=== PATIENT | male | born 1965 | race Caucasian/White ===

== ENCOUNTER 2019-01-14 09:44 | Emergency (ER) | payer MEDICARE, SELFPAY ==
[2019-01-14 09:44] VITALS: BP 158/93; PULSE 20; RESP 78; TEMP 36.6; O2SAT 97; BMI 32.1
--- NOTE | 2019-01-14 10:01 | ED.VIS.GEN ---
History of Present Illness Chief Complaint: Abd Pain Informant: Patient Onset: Days - Patient reports onset of pain Friday with nausea, vomiting and diarrhea Context: Sudden Onset Timing: Intermittent Quality: Crampy diffuse Location: Abdominal pain Current Severity: Mild Maximum Severity: Moderate Worsened by: Vomiting and diarrhea Relieved by: Nothing Associated Symptoms: Nausea, vomiting and diarrhea, decreased urine output Narrative: Patient is a middle-aged male with history of hypertension on 5 mg lisinopril who presents with nausea, vomiting diarrhea that started Friday. He reports vomiting 10-15 times on Friday, 5 times yesterday and 7 times since midnight. He also reports diarrhea that was profuse with onset. He still reports 7 bowel movements a day. He states his diarrhea is watery and light brown in color. He denies hematemesis, melena hematochezia. He denies mucus in the stool. He states he has not been on an antibiotic in the past month. He denies ill contacts. Prior similar symptoms: No Recent Illness/Hospitalization: No - Past Medical History (1) History of hypertension Status: Acute Past Medical History - Allergies and Home Meds Allergies/Adverse Reactions: Allergies risperidone [From Risperdal] Allergy (Verified 11/11/16 21:42) Other HALLUCINATIONS Primary Care Physician: Zofia Juarez MD [NON-STAFF] - Prior records reviewed: Yes Surgical History: - - Left inguinal hernia repair and umbilical hernia repair Lives: Alone Smoking Status: Current every day smoker Alcohol: None Review of Systems General: Reports: Malaise. Denies: Chills, Fever, Subjective, Sweats Eyes: Denies: Visual changes - bilaterally, Blurred Vision - bilaterally, Diplopia ENT: Denies: Rhinorrhea, Sore throat Cardiovascular: Denies: Chest pain, Palpitations Respiratory: Denies: Dyspnea, Cough, Dyspnea on exertion, Orthopnea, Paroxysmal nocturnal dyspnea Gastrointestinal: Reports: Abdominal pain, Nausea, Vomiting, Diarrhea. Denies: Constipation, Melena, Hematochezia Genitourinary: Reports: - - Decreased urine output. Denies: Dysuria, Hematuria, Frequency, - Musculoskeletal: Denies: Back pain, Extremity Pain Skin: Denies: Rash, Wounds Neurological: Denies: Headache, Weakness, Numbness Endocrine: Denies: Polyuria, Polydipsia Allergy: Denies: Uticaria, Swelling of the mouth Physical Exam Vital Signs/Narrative: Vital Signs Temp Pulse Resp BP Pulse Ox 01/14/19 09:44 97.9 F 20 L 78 H 158/93 H 97 Inital Vital Signs reviewed: Yes General: Well nourished, Well developed, No Acute Distress ENT: No rhinorrhea, TM's clear, Dry mucous membranes Neck: Supple, Nontender. Negative for: No lymphadenopathy, No JVD, - Cardiovascular: Regular rate, Regular rhythm, No murmurs, Normal S1, Normal S2 Respiratory: No distress, CTA bilaterally, Chest nontender Abdomen: Soft, Nontender, Nondistended, Normal bowel sounds, No masses, - - Surgical scars noted. Surgical scars are well-healed without any abnormality. Back: Nontender, Normal Inspection Skin: Normal color, No rash. Negative for: Cyanosis, Jaundice Neurological: Alert, Oriented x3, Cranial nerves II-XII grossly intact, Normal Strength, Normal Sensation Psychological: Normal affect, Normal Mood Diagnostic/Tx/Re-eval Laboratory Results 01/14/19 10:13 Sodium 139 Potassium 4.1 Chloride 107 Carbon Dioxide 26.0 Anion Gap 6 BUN 11 Creatinine 0.76 Estim Creat Clear Calc 117.40 Est GFR (MDRD) Af Amer 137 Est GFR (MDRD) Non-Af 114 BUN/Creatinine Ratio 14.4 Glucose 87 Calcium 8.5 - Medical Decision Making With history of significant vomiting diarrhea, thirst, dry mouth, orthostatic symptoms and decreased urine output will obtain basic metabolic panel to assess renal function and electrolytes. IV was established and he received 4 mg of Zofran IV push and 1 L of normal saline wide open. Will reassess after fluids have been fused and lab results are available for review. Patient had no vomiting or diarrhea during his 2.75-hour stay. Patient be discharged with appropriate home-going instructions and medication. Patient's basic metabolic panel was normal. ED Disposition - Plan for ED Patient: Disposition: Home or Assisted Living Diagnosis: Abdominal pain, vomiting, and diarrhea, Mild dehydration Instructions: ED Vomiting Diarrhea Nonspecific Ad Prescriptions: Ondansetron [Zofran Odt] 4 mg PO Q8H PRN PRN #10 tab PRN Reason: Nausea Dicyclomine HCl [Bentyl] 20 mg PO TIDAC #10 cap Referrals: Zofia Juarez MD [NON-STAFF] - 3-5 Days if not improving
[2019-01-14] MEDS: 0.9% Normal Saline 1,000 ML 1000 ML IV (10:27)
[2019-01-14] MEDS: Ondansetron 4 MG/2 ML Vial IV (10:28)
[2019-01-14 10:36] LABS: Anion Gap 6 (5-15); BUN 11 mg/dL (7-18); BUN/Creat Ratio 14.4 RATIO (10-20); Calcium,Total 8.5 mg/dL (8.5-10.1); Chloride 107 mmol/L (98-107); Creatinine, Serum 0.76 mg/dL (0.70-1.30); EST Glomerular Filtration Rate 114 mL/min (>60); Est Glom Filt Rate - Afr Amer 137 mL/min (>60); Glucose 87 mg/dL (74-106); Potassium 4.1 mmol/L (3.5-5.1); Sodium Level 139 mmol/L (136-145)
[2019-01-14] MEDS: Loperamide 2 MG Capsule 4 MG PO (12:47)
[2019-01-14 12:48] VITALS: BP 124/82; PULSE 69; RESP 17; O2SAT 97
[2019-01-14] MEDS: Dicyclomine 10 MG Capsule 20 MG PO (12:48)
== END 2019-01-14 12:48 | disposition home or self-care (01) ==
PROVIDERS: Emergency Provider Emergency Medicine; Family Provider Family Medicine; PCP Family Medicine
DX: R10.9 Unspecified abdominal pain (principal); R11.2 Nausea with vomiting, unspecified; R19.7 Diarrhea, unspecified; E86.0 Dehydration; F17.200 Nicotine dependence, unspecified, uncomplicated; I10 Essential (primary) hypertension
CPT/HCPCS: 80048; 96361; 96374; 99284; J7030; J2405